=== PATIENT | female | born 1990 | race Two or more races ===

== ENCOUNTER 2018-11-18 17:07 | Emergency (ER) | payer MEDICAID ==
[~2018-11-18] VITALS: Ht 157.5 cm; Wt 75.3 kg
[2018-11-18 17:12] VITALS: BP_SYST 124
--- NOTE | 2018-11-18 17:21 | NUR ---
Patient to ER bed 5 to gown for evaluation. Side rails up.
--- NOTE | 2018-11-18 17:28 | NUR ---
BALBIR Aguliar PAC at bedside examining patient.
--- NOTE | 2018-11-18 17:32 | NUR ---
pt reports feeling sleepy and has a dry mouth after taking Benadryl for congestion. Pt is AAO x 4. No c/o SOB or pain at the moment. Will continue to monitor.
--- NOTE | 2018-11-18 17:42 | NUR ---
Patient given written and verbal discharge instructions and verbalizes understanding. ER MD discussed with patient the results and treatment provided. Patient in stable condition. ID arm band removed. Rx of pseudoephedrine 30mg given. Patient educated on pain management and to follow up with PMD. Pain Scale 0/10.Opportunity for questions provided and answered. Medication side effect fact sheet provided.
[2018-11-18 17:45] VITALS: BP_SYST 124
== END 2018-11-18 17:45 | disposition home or self-care (01) ==
LOC: SED 17:07
DX: J06.9 Acute upper respiratory infection, unspecified (principal)
CPT/HCPCS: 99282

== ENCOUNTER 2018-12-26 07:43 | Emergency (ER) | payer MEDICAID ==
[~2018-12-26] VITALS: Ht 157.5 cm; Wt 73.5 kg
[2018-12-26 07:51] VITALS: BP_SYST 142
--- NOTE | 2018-12-26 10:05 | NUR ---
Patient to ER bed 8 to gown for evaluation. Side rails up. Report given to Agueda gordon.
--- NOTE | 2018-12-26 10:21 | NUR ---
ER at bedside examining patient.
[2018-12-26] MEDS ORDERED: LORazepam 2 MG/ML VIAL IM ONE (10:45)
--- NOTE | 2018-12-26 10:52 | NUR ---
pt refusing Ativan. made aware.
[2018-12-26 11:10] LABS: BASOPHILS # (AUTO) 0.1 K/uL (0.0-0.2); BASOPHILS % (AUTO) 0.6 % (0.0-2.0); EOSINOPHILS % (AUTO) 0.1 % (0.0-4.0); HEMATOCRIT 38.9 % (36-48); HEMOGLOBIN 13.6 g/dL (12.0-16.0); LYMPHOCYTES # (AUTO) 1.9 K/uL (1.0-5.5); LYMPHOCYTES % (AUTO) 20.1 % (20.5-51.5); MEAN CORPUSCULAR HEMOGLOBIN 30 pg (27-31); MEAN CORPUSCULAR HGB CONC 35 % (32-36); MEAN CORPUSCULAR VOLUME 88 fL (79.0-98.0); MONOCYTES # (AUTO) 0.4 K/uL (0.0-1.0); MONOCYTES % (AUTO) 4.6 % (1.7-9.3); NEUTROPHILS # (AUTO) 7.2 K/uL (1.8-7.7); NEUTROPHILS % (AUTO) 74.6 % (40.0-70.0); PLATELET COUNT (AUTO) 489 K/uL (130-430); RED BLOOD CELL COUNT(AUTO) 4.45 MIL/uL (4.2-6.2); RED CELL DISTRIBUTION WIDTH 12.7 % (9.0-15.0); WHITE BLOOD COUNT (AUTO) 9.6 K/uL (4.8-10.8)
[2018-12-26 11:25] VITALS: BP_SYST 142
[2018-12-26 11:27] LABS: CALCIUM 9.3 mg/dL (8.4-11.0); CREATININE 0.66 mg/dL (0.55-1.30); POTASSIUM 3.8 mmol/L (3.5-5.1)
--- NOTE | 2018-12-26 11:27 | NUR ---
Patient given written and verbal discharge instructions and verbalizes understanding. ER MD discussed with patient the results and treatment provided. Patient in stable condition. ID arm band removed. Rx of Xanax given. Patient educated on pain management and to follow up with PMD. Pain Scale 0/10.Opportunity for questions provided and answered. Medication side effect fact sheet provided.
== END 2018-12-26 11:27 | disposition home or self-care (01) ==
LOC: SED 07:43
DX: F41.9 Anxiety disorder, unspecified (principal); R03.0 Elevated blood-pressure reading, without diagnosis of hypertension
CPT/HCPCS: 36415; 80048; 85025; 99284; J2060